=== PATIENT | female | born 1935 | race Caucasian/White ===

== ENCOUNTER → 2016-08-10 | Outpatient (CLI) | payer OTHER ==
[~2016-08-10] MED LIST: IOPAMIDOL (ISOVUE-370) 150 ML BTL IV ONE
[2016-08-10 14:24] LABS: CREATININE 0.7 mg/dL (0.6-1.0); GLOMERULAR FILTRATION RATE > 60
== END ==
LOC: FIMAGING 12:54
PROVIDERS: ATTEND Internal Medicine Cardiovascular Disease
DX: I73.9 Peripheral vascular disease, unspecified (principal); R68.89 Other general symptoms and signs; I70.0 Atherosclerosis of aorta; K44.9 Diaphragmatic hernia without obstruction or gangrene; K57.90 Diverticulosis of intestine, part unspecified, without perforation or abscess without bleeding
CPT/HCPCS: 75635; Q9967

== ENCOUNTER → 2016-10-12 | Outpatient (CLI) | payer OTHER | LOC: FIMAGING 11:46 | PROVIDERS: ATTEND Physical Medicine & Rehabilitation | DX: M51.36 Other intervertebral disc degeneration, lumbar region (principal) ==

== ENCOUNTER → 2016-11-22 | Outpatient (CLI) | payer OTHER | LOC: FIMAGING 08:16 | PROVIDERS: ATTEND Surgery | DX: K21.9 Gastro-esophageal reflux disease without esophagitis (principal); K44.9 Diaphragmatic hernia without obstruction or gangrene; K22.5 Diverticulum of esophagus, acquired ==

== ENCOUNTER 2017-07-12 11:10 | Observation (INO) | payer OTHER ==
[2017-07-12] MEDS ORDERED: NS 1,000 ML IV ONE (11:13)
--- NOTE | 2017-07-12 11:42 | PDGENHP ---
History & Physical Chief Complaint: Symptomatic supraventricular tachycardia Pertinent Past, Social, Family History: Prior ablation procedure at our institution, recurrence of SVT Relevant Physical Exam: S1-S2 regular rate and rhythm lungs clear to auscultation alert and oriented x3 Cardiorespiratory Assessment: 81-year-old female, prior RF ablation for AVNRT. Recurrent SVT post ablation. Will likely need cryo ablation. Patient understands high risk of complete AV block after procedure and potential need for permanent pacemaker
--- NOTE | 2017-07-12 11:46 | CPEKG ---
Heart Rate: 68 RR Interval: 882 P-R Interval: 140 QRSD Interval: 66 QT Interval: 416 QTC Interval: 443 P [place]: 31 QRS [place]: 11 T Wave [place]: 47 EKG Severity - ABNORMAL ECG - EKG Impression: SINUS RHYTHM EKG Impression: NONSPECIFIC T ABNORMALITIES, LATERAL LEADS Electronically Signed By: Pascual García 12-Jul-2017 12:46:33
[2017-07-12] MEDS ORDERED: HEPARIN 10,000 UNIT/10 ML MDV (1,000 UNIT/ML) ONE (12:18)
[2017-07-12] MEDS ORDERED: ISOPROTERENOL HCL/D5W 0.2 MG/50 ML BAG IV ONE (12:18)
[2017-07-12 12:19] LABS: PLATELET COUNT 237 10^3/uL (150-400)
[2017-07-12 12:29] LABS: INR 0.97 (0.83-1.16); PROTIME(PATIENT) 13.1 SEC (12.0-15.0)
--- NOTE | 2017-07-12 12:29 | PDANEPAE ---
ANE History of Present Illness Symptomatic SVT ANE Past Medical History - Pulmonary History Hx Oxygen in Use at Home: No Hx Sleep Apnea: Yes - Endocrine History Hx Diabetes: No - Chronic Pain History Chronic Pain: No ANE Review of Systems Review of Systems: ANE Patient History - Allergies Allergies/Adverse Reactions: codeine [Codeine] Allergy (Severe, Verified 07/06/15 10:56) Rash morphine [Morphine] Allergy (Severe, Verified 07/06/15 10:56) Rash adhesive tape Allergy (Mild, Verified 07/06/15 10:56) Rash meperidine HCl [From Demerol] Allergy (Unknown, Verified 07/05/17 15:30) Itching ENVIRONMENTAL Allergy (Mild, Uncoded 11/12/10 16:22) NASAL CONGESTION MILK AND MILK PRODUCTS Allergy (Mild, Uncoded 11/12/10 16:22) Vomiting - Home Medications Home Medications: Chlorthalidone [Chlorthalidone 25 mg (*)] 12.5 mg PO DAILY 04/23/14 [Last Taken 04/22/14] Cholecalciferol Vit D3 [Vitamin D3 (*)] 1,000 units PO DAILY 04/23/14 [Last Taken Unknown] Vit A/Vit C/Vit E/Zinc/Copper [Preservision Areds Tablet] 1 each PO DAILY [Last Taken Unknown] ALPRAZolam [Xanax 0.25 MG (*)] 0.25 mg PO BID PRN 07/05/17 [Last Taken Unknown] Acetaminophen [Tylenol ES 500 mg (*)] 1,000 mg PO BID PRN 07/05/17 [Last Taken Unknown] Amlodipine Besylate [Norvasc] 5 mg PO DAILY 07/05/17 [Last Taken Unknown] Cetirizine [ZyrTEC 10 mg (*)] 5 mg PO DAILY PRN 07/05/17 [Last Taken Unknown] Escitalopram Oxalate [Lexapro] 5 mg PO DAILY 07/05/17 [Last Taken Unknown] Ranitidine HCl 300 mg PO HS 07/05/17 [Last Taken Unknown] Temazepam [Restoril 15 MG (*)] 15 mg PO HS PRN 07/05/17 [Last Taken Unknown] - Anes Hx Hx Anesthesia Complications (with details): Wakes up fighting and very disoriented. Requires sedative. Happens with all anesthestics. - Smoking Hx Smoking Status: Never smoked ANE Labs/Vital Signs - Labs Result Diagrams: 07/12/17 11:55 07/12/17 11:55 ANE Physical Exam - Airway Neck exam: FROM Mallampati Score: Class 2 Mouth exam: normal dental/mouth exam - Pulmonary Pulmonary: no respiratory distress - Cardiovascular Cardiovascular: regular rate and rhythym - ASA Status ASA Status: III ANE Anesthesia Plan Anesthesia Plan: general endotracheal anesthesia (Plan versed pre and post-op. Will attempt to wake up slower and have family member for reassurance.)
[2017-07-12] MEDS ORDERED: MIDAZOLAM 2 MG/2 ML VIAL ONE ×3 (12:49→15:41)
[2017-07-12] MEDS ORDERED: MIDAZOLAM 2 MG/2 ML VIAL IVP ONE (12:57)
[2017-07-12] MEDS ORDERED: fentaNYL 100 MCG/2 ML INJ ONE (13:00)
[2017-07-12] MEDS ORDERED: PROPOFOL/EMULSION 500 MG/50 ML BOTTLE IV ONE (13:00)
[2017-07-12] MEDS ORDERED: PROPOFOL 200 MG/20 ML VIAL ONE (13:00)
[2017-07-12] MEDS ORDERED: ROCURONIUM 50 MG/5 ML VIAL ONE ×2 (13:04→13:35)
[2017-07-12] MEDS ORDERED: PHENYLEPHRINE HCL 100 MCG/ML SYR ONE ×2 (13:08→14:45)
[2017-07-12] MEDS ORDERED: PROTAMINE SULFATE 50 MG/5 ML VIAL IVP ONE (15:41)
[2017-07-12] MEDS ORDERED: ONDANSETRON 4 MG/2 ML VIAL IVP PRN (15:57)
--- NOTE | 2017-07-12 15:57 | EPPROC ---
Electrophysiology Procedure Note: ELECTROPHYSIOLOGIC STUDY AND CATHETER MEDIATED ABLATION OF SLOW/FAST AV YENI REENTRY TACHYCARDIA PROCEDURES PERFORMED: 63424-58 EP evaluation with RA/RV/LA pace/record, with arrhythmia induction 57597-53 EP evaluation with RA/RV pace record, insert/reposition catheter, with arrhythmia induction 45215 Intracardiac catheter ablation, SVT arrhythmogenic focus 13120 3D mapping Fluoroscopy INDICATION: Prior ablation for AVNRT at our institution 8 years ago, recurrent SVT PROCEDURE: Catheters & Anesthesia: The patient arrived in the Electrophysiology Laboratory in the fasting state. The right clavicular region, right groin, and left groin area were prepped and draped in the usual sterile manner. Anesthesiologist Dr. Brent Heard administered general anesthesia. Appropriate non-invasive blood pressure, pulse oximetry and end-tidal CO2 monitoring was established. All catheters were placed percutaneously using the modified Seldinger technique , and advanced into position under fluoroscopic guidance. One #6 Romansh hexapolar non-deflectable electrode catheter was inserted into the right atrial appendage via the left femoral vein (2mm spacing; except the proximal ring which was 25cm from the tip used for unipolar recordings). One #7 Romansh deflectable octapolar electrode catheter was advanced to the His-bundle position via the left femoral vein (2mm spacing). Heparin was given to keep ACT > 200 s. Programmed stimulation was performed from the right atrium, right ventricle and coronary sinus (left atrium). Parahisian pacing demonstrated constant H-A interval with changing V-A intervals and stimulus-A intervals during capture and loss of capture of proximal RBB proving retrograde conduction over AV node. AVNRT was induced easily during infusion of isoproterenol 1-2 mcg/min. Ventricular extrastimuli delivered during tachycardia without altering antegrade His bundle activation did not advance next atrial potential, indicating that the tachycardia was not utilizing an accessory pathway for retrograde conduction. VA interval was 15 ms. Post entrainment of the tachycardia from the ventricle, there was VAHV response. Mapping of the right atrium and coronary sinus during AVNRT identified earliest atrial activation above the tendon of Carmen at a level slightly posterior to the level of the His bundle, consistent with retrograde conduction over the fast AV yeni pathway. A #8 Romansh deflectable quadrapolar electrode catheter (2mm-5mm-2mm spacing) with 4 mm tip electrode and sensor for the 3D mapping Carto system was advanced to the right atrium. 3 D mapping of the inter-atrial septum and coronary sinus was performed and location of the AV node was marked. A SL2 sheath was used. RF applications were delivered to the region between the tricuspid annulus and the coronary sinus ostium, at the level of the upper edge of the coronary sinus ostium. Radiofrequency applications were also delivered along the roof of the proximal coronary sinus. Junctional rhythm occurred during all of the RF applications. However AVNRT continued to be inducible. AVNRT was slower, cycle length 500 milliseconds. With isoproterenol, AVNRT, cycle length 450 milliseconds was noted. 6 mm cryo catheter was placed and cryo lesions were applied to the low mid septal tricuspid annulus and the ostial coronary sinus. This rendered AVNRT noninducible. Programmed stimulation was continued post ablation at baseline and during graded doses of isoproterenol upto 4mcg/min. Sustained AVNRT was not inducible. There were no echo beats. The catheters were removed. The long sheath was changed to a short 9 Fr sheath. The patient was transferred to the cardiovascular holding area in stable condition. Vascular access sheaths were removed in the EP lab after pursestring suture was applied bilaterally. There were no apparent complications. Results: A. Spontaneous Intervals: Pre ablation SCL 770 ms AH 70 ms HV 50 ms Post ablation SCL 750 ms AH 75 ms HV 50 ms B. Antegrade AV yeni function (decremental pacing) Pre ablation FPERP 460 ms CL 450 ms Post ablation FPERP 510 ms WBB CL 500 ms, with isoproterenol 2 mics per minute, Wenckebach block occurred at 330 milliseconds C. Retrograde AV yeni function (decremental pacing) Pre ablation FPERP 360 ms WBB CL 350 ms D. Arrhythmias: Sustained slow/fast AVNRT Cycle length 350 ms, AH interval 310 ms, VALVERDE interval 40 ms VA interval 15 ms CONCLUSIONS 1. 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 ( Slow/fast AVNRT). 2. Successful ablation (radiofrequency and cryo) of the slow AV yeni pathway with elimination of 1:1 antegrade conduction over the slow AV yeni pathway, all retrograde conduction over the slow AV yeni pathway and the inducibility of AVNRT. 3. No complications. Patient Problems: Problems Problem Status Onset Supraventricular tachycardia Acute Gastroenteritis Acute
[2017-07-12] MEDS ORDERED: CETIRIZINE 10 MG TAB PO PRN (15:59)
[2017-07-12] MEDS ORDERED: TEMAZEPAM 15 MG CAP PO PRN (15:59)
--- NOTE | 2017-07-12 16:22 | CPEKG ---
Heart Rate: 70 RR Interval: 857 P-R Interval: 152 QRSD Interval: 60 QT Interval: 420 QTC Interval: 454 P [place]: 5 QRS [place]: 54 T Wave [place]: 18 EKG Severity - OTHERWISE NORMAL ECG - EKG Impression: SINUS RHYTHM EKG Impression: MINIMAL ST DEPRESSION, ANTERIOR LEADS Electronically Signed By: Pascual García 13-Jul-2017 08:00:39
--- NOTE | 2017-07-12 16:23 | POSTANESTH ---
Post Anesthetic Evaluation Cardiovascular Status: Similar to Pre-Op Cond Respiratory Status: Normal, Stable Level of Consciousness/Mental Status: Can Participate in Eval (Crying otherwise waking up without difficulty) Pain Control: Adequate, Prn Tx Ordered (C/O some pain in groins) Nausea/Vomiting Control: Adequate, Prn Tx Ordered Complications Possibly Related to Anesthesia: None Noted
[2017-07-12] MEDS: ALPRAZolam 0.25 MG TAB PO PRN (17:36)
[2017-07-12] MEDS: ACETAMINOPHEN 325 MG TAB PO PRN (18:41)
[2017-07-12] MEDS ORDERED: FAMOTIDINE 20 MG TAB PO SCH (21:00)
[2017-07-13] MEDS: ALPRAZolam 0.25 MG TAB PO PRN (05:01)
[2017-07-13 06:20] LABS: PLATELET COUNT 195 10^3/uL (150-400)
[2017-07-13 06:31] LABS: CREATINE KINASE 72 IU/L (0-156); PROTIME(PATIENT) 13.4 SEC (12.0-15.0)
[2017-07-13] MEDS: ACETAMINOPHEN 325 MG TAB PO PRN (07:38)
[2017-07-13 07:48] VITALS: BP 124/53; PULSE 65; RESP 13; TEMP 97.4; O2SAT 94
--- NOTE | 2017-07-13 08:49 | CPEKG ---
Heart Rate: 75 RR Interval: 800 P-R Interval: 152 QRSD Interval: 66 QT Interval: 404 QTC Interval: 452 P [place]: 23 QRS [place]: 8 T Wave [place]: 107 EKG Severity - NORMAL ECG - EKG Impression: SINUS RHYTHM Electronically Signed By: Pascual García 13-Jul-2017 11:22:46
[2017-07-13] MEDS ORDERED: CHOLECALCIFEROL VIT D3 1,000 UNITS TAB PO SCH (09:00)
[2017-07-13] MEDS ORDERED: amLODIPine BESYLATE 5 MG TAB PO SCH (09:00)
[2017-07-13] MEDS ORDERED: CHLORTHALIDONE 25 MG TAB PO SCH (09:00)
[2017-07-13] MEDS ORDERED: ASPIRIN 81 MG CHEWABLE TAB PO SCH (09:00)
[2017-07-13] MEDS ORDERED: NON-FORMULARY NEW DRUG (Vit A/Vit C/Vit E/Zinc/Copper [Preservision Areds Tablet] 1 EACH) PO SCH (09:00)
[2017-07-13] MEDS ORDERED: PRESERVISION AREDS2 FORMULA EYE VIT 1 EACH PO SCH (09:00)
[2017-07-13] MEDS ORDERED: ESCITALOPRAM OXALATE 10 MG TAB PO SCH (09:00)
--- NOTE | 2017-07-13 09:09 | ECHO ---
[email or web address] [address] Main: [phone] Fax: Transthoracic Echocardiogram Name: JOHN GREENBERG MR#: [id number] Study Date: 07/13/2017 Study Time: 07:30 AM Date of : 1935 Age: 81 year(s) Height: 162.6 cm (64 in.) Weight: 68.04 kg (150 lb.) BSA: 1.73 m2 Gender: Female Examination: Echo Indication: F/U post EP study Image Quality: Contrast: Requested by: Pascual García BP: 124 mmHg/53 mmHg Heart Rate: Rhythm: Indication: F/U post EP study Procedure Staff Cigar Packer And Shader: Elsie Winter JODIE Reading Physician: Pascual García Requesting Provider: Conclusions: Normal global systolic LV function. Mild mitral valve regurgitation is present. Trivial to mild tricuspid valve regurgitation. No pericardial effusion. Measurements: Chambers Valvular Assessment AV/MV Valvular Assessment TV/PV Normal Normal Normal Name Value Range Name Value Range Name Value Range Ao Madelaine (MM): 3.2 cm (2.2 cm-3.7 AV meanP mmHg ( - ) TR Vmax: 2.13 mm/s ( - ) cm) MV E Vmax: 0.92 m/s ( - ) TR PGmax: 18 mmHg ( - ) IVSd (2D): 0.7 cm (0.6 cm-1.1 MV A Vmax: 0.88 m/s ( - ) syst. PAP: 23 mmHg ( - ) cm) MV E/A: 1.05 ( - ) LVDd (2D): 4.4 cm (3.9 cm-5.3 cm) LVDs (2D): 2.7 cm (2.1 cm-4 cm) LVPWd (2D): 0.8 cm ( - ) LVEF (MOD4): 69 % (>=55 %) EF Range: 65-70 % Continued Measurements: Chambers Valvular Assessment AV/MV Valvular Assessment TV/PV Name Value Name Value Name Value LADs: 3.2 cm MV E/E' Septal: 13.50 CVP (est.): 5 mmHg LADs Lon.3 cm MV E/E' Lateral: 7.80 LA Area: 16.0 cm2 Patient: JOHN GREENBERG Study Date: 07/13/2017 Page 1 of 2 07:30 AM Additional Vessels Name Value Ao Ascendin.0 cm Findings: Left Ventricle: Normal size left ventricle. No LV hypertrophy. Normal global systolic LV function. The ejection fraction is estimated to be 65-70 %. No regional wall motion abnormality. Right Ventricle: Normal size right ventricle. Left Atrium: The left atrium is normal in size. Right Atrium: The right atrium is normal in size. Mitral Valve: The mitral valve is normal in appearance and function. Mild mitral valve regurgitation is present. Aortic Valve: The aortic valve is normal in appearance and function. Tricuspid Valve: The tricuspid valve is normal in appearance and function. Trivial to mild tricuspid valve regurgitation. Pulmonic Valve: The pulmonic valve is normal in appearance and function. Aorta: The aorta is normal. Pericardium: No pericardial effusion. There is pericardial fat. (No Signature Object) Patient: JOHN GREENBERG Study Date: 07/13/2017 Page 2 of 2 07:30 AM [id number]
--- NOTE | 2017-07-13 10:41 | GDS ---
[f rep st] DISCHARGE SUMMARY ADMISSION DIAGNOSES: 1. Paroxysmal supraventricular tachycardia. 2. Hyperlipidemia. 3. Essential hypertension. 4. Obstructive sleep apnea. DISCHARGE DIAGNOSES: 1. Paroxysmal supraventricular tachycardia. 2. Status post atrioventricular cliff reentrant tachycardia ablation. 3. Essential hypertension. 4. Hyperlipidemia. 5. Obstructive sleep apnea. PROCEDURES PERFORMED DURING HOSPITALIZATION: 1. Electrocardiogram. 2. Electrophysiology study. 3. Intracardiac catheter ablation for supraventricular tachycardia. 4. Echocardiogram. BRIEF HISTORY: Please see H and P. Briefly, the patient is an 81-year-old female with known history of paroxysmal SVT with previous ablation 7+ years ago. She recently noticed more episodes of palpitations with extremely fast heart rate. Monitoring showed episodes of SVT. She was sent in to Dr. García for further evaluation. She has been known to be intolerant to beta-blockers in the past and still having episodes despite being placed on diltiazem. It was decided by patient and Dr. García, the best treatment for her to undergo repeated EP study with potential ablation if necessary. HOSPITAL COURSE: Patient was admitted through CVC, prepped for procedure, and taken to electrophysiology lab where Dr. García performed electrophysiology study, finding an AV cliff reentry tachycardia using a slow AV cliff pathway for antegrade conduction and a fast AV cliff pathway for retrograde conduction. At that point, ablation was performed using both RF and cryo, of the slow AV cliff pathway, which eliminated a one-to-one antegrade conduction over the slow AV cliff pathway. No other inducible arrhythmias post ablation, no complications. Patient was transferred back to the CVC, and ultimately to the PCU for overnight observation. There, she has maintained sinus rhythm with rare PVC, no malignant arrhythmias or pauses noted. She denies any chest pain or pressure. She has been up and walking in the unit without difficulties. Her vital signs have been stable. PHYSICAL EXAMINATION: Done today, GENERAL APPEARANCE: Medium built, well- groomed female. She is alert and oriented to person, place, time, and situation. Appears to be under no acute distress. VITAL SIGNS: Current vital signs are blood pressure 124/53, heart rate 65, sinus rhythm on the monitor, respirations 13, saturating 94% on room air, temperature of 36.3 degrees Celsius. HEENT: Head is normocephalic. Lips and tongue are pink and moist, with no signs of cyanosis. Conjunctivae pink. NECK: Trachea is midline , +2 carotid pulses bilateral. No auscultated bruits. No jugular vein distention. RESPIRATORY: Lungs are clear to auscultation, no rhonchi, rales or wheezes. No accessory muscle use, no intercostal muscle retraction noted. CARDIAC: Regular rate, regular rhythm, S1, S2, no S3, S4, gallops, rubs or murmur noted. ABDOMEN: Soft, nontender, bowel sounds x4 quadrants. No organomegaly, no palpable masses. SKIN: [place], warm, dry, no cyanosis, no clubbing, no peripheral edema. VASCULAR: +2 carotids bilateral, +2 radials bilateral, +1 dorsal pedal and posterior tibial pulses bilateral. Catheter insertion site, bilateral groin sites, with no redness, swelling, drainage, ecchymosis, or hematoma. No auscultated bruit noted over either site. LABORATORY STUDIES: Laboratory studies drawn today show a WBC of 5.16, hemoglobin 11.7, hematocrit 33.9, platelet count 195. INR 1.0, sodium of 144, potassium 3.5, chloride 110, CO2 24, BUN 15, creatinine 0.8. Glucose 92, calcium 9.0, CK of 72, CK-MB of 2.11. Troponin of 0.513 (expected elevation of cardiac markers with recent ablation). STUDIES: EP and electrophysiology study as mentioned above. Electrocardiogram today shows sinus rhythm, normal axis, no significant ST or T-wave abnormalities noted. Echocardiogram done this morning showing normal LV systolic function, EF estimated between 65% and 70% with no regional wall motion abnormalities, mild MR is present, trivial TR was present, no pericardial effusion. DISCHARGE DISPOSITION: Patient will be discharged home in stable condition. She is under activity restrictions of not lifting more than 10 pounds for the next week and no strenuous activity for the next 2 weeks. DISCHARGE MEDICATIONS: Please see discharge medication reconciliation. Note, patient has been started on 81 mg of aspirin daily for the next 6 weeks. DISCHARGE INSTRUCTIONS: Post EP/ablation discharge instructions went over with the patient, including for monitoring for signs of infection, activity restrictions, bathing precautions, medication compliance, DVT precautions. At the time of discharge, patient verbalizes understanding of all instructions and has no questions or concerns. She has a followup appointment set up in 2 weeks with her primary microstrategy reports developer, Dr. Rainey. She has been told that if any problems or concerns post discharge, she is to notify our office or return to the hospital. Total time spent on discharge: Greater than 30 minutes. /[id number]/MODL MTDD
--- NOTE | 2017-07-13 13:00 | ASMTLACE ---
LACE Length of stay for Answers: Less than 1 day current admission Acuity / Level of Answers: No Care: Did the patient have an inpatient admission? Comorbidities - select Answers: Other all that apply # of Emergency department Answers: 0 visits in the last 6 months Score: 1 Date Signed: 07/13/2017 12:59 PM Electronically Signed By:Dary Rodriguez RN
--- NOTE | 2017-07-13 13:30 | ASDISCHSUM ---
Discharge Information Plan Status:Home with No Needs Medically Cleared to Leave:07/12/2017 Discharge Date:07/13/2017 11:23 AM CM D/C Disposition:Home, Routine, Self-Care ADT D/C Disposition:Home, Routine, Self-Care Projected Discharge Date:07/13/2017 11:23 AM Transportation at D/C: Discharge Delay Reason: Follow-Up Date:07/13/2017 11:23 AM Discharge Slot: Final Diagnosis: Placement Information Patient Contact Information Contact Name:GEORGE Relationship:Juan Address: City:[place] Alternate Phone: State/Zip Code:[place] [address] Email: Financial Information Financial Class:Medicare Advantage Plans Primary Plan Desc:[employer] GOLD MEDICARE Primary Plan Number:[id number] Secondary Plan Desc: Secondary Plan Number: Assessment Information LACE LACE Length of stay for Answers: Less than 1 day current admission Acuity / Level of Answers: No Care: Did the patient have an inpatient admission? Comorbidities - select Answers: Other all that apply # of Emergency department Answers: 0 visits in the last 6 months Score: 1 Date Signed: 07/13/2017 12:59 PM Electronically Signed By:Dary Rodriguez RN Intervention Information Intervention Type:*MAIKOL-Signed Date of Service:07/13/2017 09:57 AM Patient Type:Observation Staff Member:Rossana Ospina Hours: Discipline: Severity: Comment:
== END 2017-07-13 11:23 | disposition home or self-care (01) ==
LOC: FCATH 11:10 → F2W 15:57
PROVIDERS: ADMIT Internal Medicine Cardiovascular Disease; ATTEND Internal Medicine Cardiovascular Disease
PROC: 4A023FZ Measurement of Cardiac Rhythm, Percutaneous Approach (ICD-10-PCS; principal; 2017-07-12)
PROC: 02563ZZ Destruction of Right Atrium, Percutaneous Approach (ICD-10-PCS; principal; 2017-07-12)
PROC: 5A1213Z Performance of Cardiac Pacing, Intermittent (ICD-10-PCS; principal; 2017-07-12)
PROC: 02K83ZZ Map Conduction Mechanism, Percutaneous Approach (ICD-10-PCS; principal; 2017-07-12)
DX: I47.1 Supraventricular tachycardia (principal); I10 Essential (primary) hypertension; E78.5 Hyperlipidemia, unspecified; G47.33 Obstructive sleep apnea (adult) (pediatric)
CPT/HCPCS: 93005; 93306; 93613; 93621; 93623; 93653; C1730; C1731; C1732; C1733; C1893; G0378; J1644; J2250; J2370; J2704; J2720; J3010